=== PATIENT | female | born 1980 | race Caucasian/White ===

== ENCOUNTER 2022-09-29 17:44 | Inpatient (IN) | payer OTHER ==
[2022-09-29] MEDS ORDERED: Ondansetron PF 4 MG/2 ML Vial ONE (18:10)
[2022-09-29 18:30] LABS: Bilirubin 3+ (Negative); Blood, Urine 10 (Negative); Clarity Cloudy (Clear); Glucose, Urine (Dipstick) Normal (Negative); Ketone, Urine 50 mg/dL (Negative); Leukocyte 25 (Negative); Nitrite Positive (Negative); Protein, Urine (Dipstick) 100 mg/dl (Neg-Trace); Specific Gravity, Urine 1.015 (1.005-1.030); Urobilinogen 12 mg/dL (Less than 2)
[2022-09-29 18:45] LABS: RBC/HPF 0-3 HPF (0-3); Squamous Epithelial 21-50 HPF (0-3)
[2022-09-29 18:46] LABS: Bacteria/HPF 4+ HPF (None Seen); Mucous/LPF 3+ LPF (<2+)
[2022-09-29] MEDS ORDERED: Thiamine HCl 200 MG/2 ML VIAL ONE ×2 (18:56→20:33)
[2022-09-29] MEDS ORDERED: Lorazepam 2 MG/ML VIAL ONE ×2 (19:12→20:31)
[2022-09-29] MEDS ORDERED: Multivit, Therapeutic 1 TAB PO SCH (19:15)
[2022-09-29] MEDS ORDERED: Thiamine HCl 100 MG, Folic Acid 1 MG in Dextrose 5 %-0.45 % NaCl 1,000 ML IVPB SCH (19:15)
[2022-09-29 19:21] LABS: #Monocytes 1.1 10x3/uL (0.0-1.1); #Neutrophils 8.2 10x3/uL (1.5-8.4); %Basophils 0.4 % (0.0-2.0); %Lymphocytes 14.4 % (18.0-47.0); %Monocytes 10.2 % (0.0-10.0); %Neutrophils 74.8 % (40.0-75.0); Hemoglobin 14.5 g/dL (12.0-15.5); Mean Corpuscular HGB CONC 36.6 g/dL (32.0-36.0); Mean Corpuscular Hemoglobin 36.4 pg (27.0-33.0); Mean Corpuscular Volume 99.5 fl (81.6-98.3); Mean Platelet Volume 12.5 fl (7.4-10.4); Platelet Count 196 10x3/uL (150-450); RBC Distribution Width 13.3 % (11.5-14.5); Red Blood Cell (RBC) Count 3.98 10x6/uL (3.90-5.03); White Blood Cell (WBC) Count 10.9 10x3/uL (3.5-10.5)
[2022-09-29] MEDS ORDERED: cefTRIAXone\\ROCEPHIN 2 GM VIAL ONE (19:24)
[2022-09-29 19:48] LABS: Amphetamine Not Detected (NotDetected); Barbiturates Screen Detected (NotDetected); Benzodiazepine Screen Detected (NotDetected); Cocaine Metabolite Screen Not Detected (NotDetected); Methadone Not Detected (NotDetected); Methamphetamine Not Detected (NotDetected); Opiate Screen Not Detected (NotDetected); Oxycodone Screen Not Detected (NotDetected); Phencyclidine (PCP) Not Detected (NotDetected); THC/Cannabinoid Screen Not Detected (NotDetected); Tricyclic Screen Not Detected (NotDetected)
[2022-09-29 19:58] LABS: ALT (SGPT) 55 U/L (8-55); AST (SGOT) 109 U/L (5-34); Albumin 4.3 g/dL (3.5-5.0); Alkaline Phosphatase 100 U/L (40-110); Anion Gap 27 mmol/L (10-20); BUN (Urea Nitrogen) 7 mg/dL (7.0-18.7); Bilirubin, Total 3.3 mg/dL (0.2-1.2); Calc. Creatinine Clearance 0 mL/min (70-130); Calcium 8.3 mg/dL (7.8-10.44); Carbon Dioxide 24 mmol/L (22-29); Chloride 84 mmol/L (98-107); Estimated GFR 113; Globulin 3.3 g/dL (2.4-3.5); Glucose 97 mg/dL (70-105); Lipase 39 U/L (8-78); Protein, Total 7.6 g/dL (6.0-8.3); Sodium 132 mmol/L (136-145)
[2022-09-29 20:00] LABS: Magnesium 0.8 mg/dL (1.6-2.6); Potassium 2.5 mmol/L (3.5-5.1)
[2022-09-29 20:09] LABS: Syphilis Antibody Nonreactive (Nonreactive); Syphilis Antibody Index 0.06 S/CO (<1.00 Non-Reactive)
[2022-09-29] MEDS ORDERED: Magnesium 2 GM/50 ML BAG (IN WATER) ONE (20:09)
[2022-09-29] MEDS ORDERED: Potassium Chloride 20 MEQ/100 ML PREMIX BAG ONE ×2 (20:09→20:31)
[2022-09-29] MEDS ORDERED: Potassium Chloride 20 MEQ TAB ONE (20:10)
[2022-09-29 21:28] LABS: SARS-CoV-2 NAA Rapid Test Not Detected (NotDetected)
[2022-09-29 21:49] LABS: Lactic Acid 5.7 mmol/L (0.5-2.2)
[2022-09-29] MEDS ORDERED: Lorazepam 1 MG TAB PO PRN (22:14)
[2022-09-29] MEDS ORDERED: Electrolyte Replacement Protocol FS SCH (22:15)
[2022-09-29] MEDS ORDERED: Ketorolac Tromethamine 30 MG/ML VIAL IVP PRN (22:21)
[2022-09-29] MEDS ORDERED: Pantoprazole 40 MG VIAL IVP SCH (22:30)
[2022-09-29] MEDS ORDERED: Topiramate 100 MG TAB PO SCH (22:30)
[2022-09-29] MEDS: Promethazine HCl 12.5 MG in Sodium Chloride 0.9% 100 ML IVPB ONE ×2 (22:33→23:41)
[2022-09-29] MEDS: Potassium Chloride 20 MEQ in Lactated Ringer's 1,000 ML IV SCH ×3 (22:56→23:30)
[2022-09-29] MEDS: Thiamine HCl 200 MG/2 ML VIAL SLOW IVP SCH (23:12)
[2022-09-30 00:08] LABS: Lactic Acid 3.2 mmol/L (0.5-2.2)
[2022-09-30 00:10] LABS: Phosphorus 1.9 mg/dL (2.3-4.7)
[2022-09-30 00:12] LABS: Anion Gap 19 mmol/L (10-20); BUN (Urea Nitrogen) 7 mg/dL (7.0-18.7); Calc. Creatinine Clearance 130 mL/min (70-130); Calcium 7.6 mg/dL (7.8-10.44); Carbon Dioxide 27 mmol/L (22-29); Chloride 88 mmol/L (98-107); Estimated GFR 113; Glucose 115 mg/dL (70-105); Magnesium 1.3 mg/dL (1.6-2.6); Potassium 2.8 mmol/L (3.5-5.1); Sodium 131 mmol/L (136-145)
[2022-09-30] MEDS: Lorazepam 1 MG TAB PO SCH ×5 (00:24→23:01)
[2022-09-30] MEDS ORDERED: Potassium Chloride 20 MEQ in Premix Bag 1 BAG IVPB SCH ×2 (00:30→05:00)
[2022-09-30] MEDS ORDERED: Magnesium 2 GM/50 ML(in water) 2 GM in Premix Bag 1 BAG IVPB SCH ×2 (00:30→12:00)
[2022-09-30] MEDS: Potassium Chloride 20 MEQ in Premix Bag 1 BAG IVPB SCH ×4 (01:58→08:37)
[2022-09-30 03:53] LABS: #Basophils 0.1 10x3/uL (0.0-0.2); #Monocytes 0.6 10x3/uL (0.0-1.1); #Neutrophils 4.8 10x3/uL (1.5-8.4); %Basophils 0.7 % (0.0-2.0); %Eosinophils 0.4 % (0.0-6.0); %Lymphocytes 23.1 % (18.0-47.0); %Monocytes 8.8 % (0.0-10.0); %Neutrophils 66.7 % (40.0-75.0); Hemoglobin 10.9 g/dL (12.0-15.5); Mean Corpuscular HGB CONC 35.6 g/dL (32.0-36.0); Mean Platelet Volume 12.5 fl (7.4-10.4); Platelet Count 130 10x3/uL (150-450); RBC Distribution Width 13.5 % (11.5-14.5); Red Blood Cell (RBC) Count 3.03 10x6/uL (3.90-5.03); White Blood Cell (WBC) Count 7.2 10x3/uL (3.5-10.5)
[2022-09-30 04:04] LABS: Anion Gap 20 mmol/L (10-20); BUN (Urea Nitrogen) 7 mg/dL (7.0-18.7); Calc. Creatinine Clearance 134 mL/min (70-130); Calcium 7.5 mg/dL (7.8-10.44); Carbon Dioxide 23 mmol/L (22-29); Chloride 92 mmol/L (98-107); Estimated GFR 114; Glucose 138 mg/dL (70-105); Magnesium 2.3 mg/dL (1.6-2.6); Sodium 132 mmol/L (136-145)
[2022-09-30 04:10] LABS: Potassium 2.5 mmol/L (3.5-5.1)
[2022-09-30] MEDS: Potassium Chloride 20 MEQ TAB PO SCH ×2 (04:29→07:04)
[2022-09-30] MEDS: PHOS-NAK 1 PKT PACK PO SCH ×2 (04:30→08:37)
[2022-09-30] MEDS ORDERED: Chloraseptic Spray 180 ml Bottle PO PRN (08:12)
[2022-09-30] MEDS ORDERED: Cepastat Lozenges 1 LOZ PO PRN (08:12)
[2022-09-30] MEDS: Multivit, Therapeutic 1 TAB PO SCH (08:38)
[2022-09-30] MEDS: Folic Acid 1 MG TAB PO SCH (08:38)
[2022-09-30] MEDS: Topiramate 25 MG TAB PO SCH (08:38)
[2022-09-30] MEDS ORDERED: FLU VACC QS2022-23(6MOS UP)/PF 60 MCG/0.5 ML SYRINGE IM ONE (09:00)
[2022-09-30] MEDS: Fioricet 325/50/40 mg Tablet PO PRN (10:29)
[2022-09-30] MEDS: Ondansetron ODT 4 MG TAB PO PRN ×2 (10:29→18:41)
[2022-09-30] MEDS: Potassium Chloride 20 MEQ in Lactated Ringer's 1,000 ML IV SCH ×2 (10:29→15:58)
[2022-09-30 10:58] LABS: Anion Gap 16 mmol/L (10-20); BUN (Urea Nitrogen) 6 mg/dL (7.0-18.7); Calc. Creatinine Clearance 138 mL/min (70-130); Calcium 8.1 mg/dL (7.8-10.44); Carbon Dioxide 24 mmol/L (22-29); Chloride 99 mmol/L (98-107); Estimated GFR 113; Glucose 82 mg/dL (70-105); Potassium 3.9 mmol/L (3.5-5.1); Sodium 135 mmol/L (136-145)
[2022-09-30] MEDS ORDERED: Metoprolol Tartrate 25 MG TAB PO SCH (12:00)
[2022-09-30] MEDS ORDERED: cloNIDine 0.1 MG TAB PO PRN (12:01)
[2022-09-30] MEDS: Ketorolac Tromethamine 30 MG/ML VIAL IVP PRN (16:51)
[2022-09-30] MEDS: Cyanocobalamin (Vitamin B-12) 1,000 MCG TAB PO SCH (20:21)
[2022-09-30] MEDS: Metoprolol Tartrate 25 MG TAB PO SCH (20:21)
[2022-09-30] MEDS: Topiramate 100 MG TAB PO SCH (20:21)
[2022-09-30] MEDS: cefTRIAXone\\ROCEPHIN 1 GM in Sodium Chloride 0.9% 100 ML IVPB SCH (20:21)
[2022-09-30] MEDS: Pantoprazole 40 MG VIAL IVP SCH (20:23)
[2022-09-30] MEDS ORDERED: Pantoprazole 40 MG VIAL IVP SCH (21:00)
[2022-09-30] MEDS ORDERED: Lorazepam 1 MG TAB PO PRN (22:14)
[2022-09-30] MEDS: Thiamine HCl 200 MG/2 ML VIAL SLOW IVP SCH (23:01)
[2022-10-01] MEDS: Potassium Chloride 20 MEQ in Lactated Ringer's 1,000 ML IV SCH ×2 (02:36→18:32)
[2022-10-01 04:13] LABS: Mean Platelet Volume 12.9 fl (7.4-10.4)
[2022-10-01] MEDS: Fioricet 325/50/40 mg Tablet PO PRN ×3 (04:13→17:23)
[2022-10-01 04:14] LABS: #Basophils 0.1 10x3/uL (0.0-0.2); #Eosinphils 0.1 10x3/uL (0.0-0.5); #Monocytes 0.6 10x3/uL (0.0-1.1); #Neutrophils 3.2 10x3/uL (1.5-8.4); %Basophils 1.4 % (0.0-2.0); %Lymphocytes 28.2 % (18.0-47.0); %Monocytes 11.4 % (0.0-10.0); %Neutrophils 56.8 % (40.0-75.0); Hemoglobin 10.9 g/dL (12.0-15.5); Mean Corpuscular HGB CONC 33.5 g/dL (32.0-36.0); Mean Corpuscular Hemoglobin 36.7 pg (27.0-33.0); Mean Corpuscular Volume 109.4 fl (81.6-98.3); Platelet Count 113 10x3/uL (150-450); RBC Distribution Width 13.9 % (11.5-14.5); Red Blood Cell (RBC) Count 2.97 10x6/uL (3.90-5.03); White Blood Cell (WBC) Count 5.6 10x3/uL (3.5-10.5)
[2022-10-01 04:26] LABS: ALT (SGPT) 55 U/L (8-55); AST (SGOT) 122 U/L (5-34); Albumin 3.3 g/dL (3.5-5.0); Alkaline Phosphatase 83 U/L (40-110); Anion Gap 13 mmol/L (10-20); BUN (Urea Nitrogen) 5 mg/dL (7.0-18.7); Bilirubin, Total 1.3 mg/dL (0.2-1.2); Calc. Creatinine Clearance 127 mL/min (70-130); Calcium 8.1 mg/dL (7.8-10.44); Carbon Dioxide 21 mmol/L (22-29); Chloride 107 mmol/L (98-107); Estimated GFR 108; Globulin 2.4 g/dL (2.4-3.5); Glucose 84 mg/dL (70-105); Phosphorus 1.9 mg/dL (2.3-4.7); Potassium 3.4 mmol/L (3.5-5.1); Protein, Total 5.7 g/dL (6.0-8.3); Sodium 138 mmol/L (136-145)
[2022-10-01] MEDS: Lorazepam 1 MG TAB PO SCH ×4 (05:10→23:32)
[2022-10-01 06:04] VITALS: BMI 29.0
[2022-10-01] MEDS ORDERED: Magnesium 2 GM/50 ML(in water) 2 GM in Premix Bag 1 BAG IVPB SCH (08:00)
[2022-10-01] MEDS ORDERED: Potassium Chloride 20 MEQ TAB PO SCH (08:00)
[2022-10-01] MEDS: Pantoprazole 40 MG VIAL IVP SCH ×2 (08:35→21:47)
[2022-10-01] MEDS: Ketorolac Tromethamine 30 MG/ML VIAL IVP PRN ×2 (08:36→23:36)
[2022-10-01] MEDS: Metoprolol Tartrate 25 MG TAB PO SCH ×2 (08:37→21:47)
[2022-10-01] MEDS: Folic Acid 1 MG TAB PO SCH (08:37)
[2022-10-01] MEDS: Ondansetron ODT 4 MG TAB PO PRN (08:37)
[2022-10-01] MEDS: Multivit, Therapeutic 1 TAB PO SCH (08:37)
[2022-10-01] MEDS: PHOS-NAK 1 PKT PACK PO SCH ×2 (08:37→12:22)
[2022-10-01] MEDS: Topiramate 25 MG TAB PO SCH (08:38)
[2022-10-01] MEDS ORDERED: Dicyclomine 10 MG CAP PO PRN (14:37)
[2022-10-01] MEDS ORDERED: Fentanyl 100 MCG/2 ML VIAL SLOW IVP SCH (15:45)
[2022-10-01] MEDS ORDERED: Ondansetron PF 4 MG/2 ML Vial IVP PRN (15:56)
[2022-10-01] MEDS ORDERED: cefTRIAXone\\ROCEPHIN 1 GM VIAL ONE (21:31)
[2022-10-01] MEDS: Cyanocobalamin (Vitamin B-12) 1,000 MCG TAB PO SCH (21:46)
[2022-10-01] MEDS: Topiramate 100 MG TAB PO SCH (21:48)
[2022-10-01] MEDS: cefTRIAXone\\ROCEPHIN 1 GM in Sodium Chloride 0.9% 100 ML IVPB SCH (21:49)
[2022-10-01] MEDS ORDERED: Lorazepam 1 MG TAB PO PRN (22:14)
[2022-10-01] MEDS ORDERED: Promethazine HCl 12.5 MG in Sodium Chloride 0.9% 50 ML IVPB SCH (23:00)
[2022-10-01] MEDS: Thiamine HCl 200 MG/2 ML VIAL SLOW IVP SCH (23:18)
[2022-10-01] MEDS: Cyclobenzaprine 10 MG TAB PO PRN (23:21)
[2022-10-02 04:31] LABS: #Basophils 0.1 10x3/uL (0.0-0.2); #Eosinphils 0.2 10x3/uL (0.0-0.5); #Monocytes 0.8 10x3/uL (0.0-1.1); #Neutrophils 3.4 10x3/uL (1.5-8.4); %Basophils 1.4 % (0.0-2.0); %Eosinophils 3.2 % (0.0-6.0); %Lymphocytes 29.4 % (18.0-47.0); %Monocytes 12.5 % (0.0-10.0); %Neutrophils 53.2 % (40.0-75.0); Hemoglobin 11.8 g/dL (12.0-15.5); Mean Corpuscular HGB CONC 33.4 g/dL (32.0-36.0); Mean Corpuscular Hemoglobin 36.6 pg (27.0-33.0); Mean Corpuscular Volume 109.6 fl (81.6-98.3); Mean Platelet Volume 12.9 fl (7.4-10.4); Platelet Count 127 10x3/uL (150-450); Red Blood Cell (RBC) Count 3.22 10x6/uL (3.90-5.03); White Blood Cell (WBC) Count 6.5 10x3/uL (3.5-10.5)
[2022-10-02 05:01] LABS: ALT (SGPT) 62 U/L (8-55); AST (SGOT) 100 U/L (5-34); Albumin 3.4 g/dL (3.5-5.0); Alkaline Phosphatase 97 U/L (40-110); Anion Gap 16 mmol/L (10-20); BUN (Urea Nitrogen) 6 mg/dL (7.0-18.7); Bilirubin, Total 1.1 mg/dL (0.2-1.2); Calc. Creatinine Clearance 129 mL/min (70-130); Calcium 8.6 mg/dL (7.8-10.44); Carbon Dioxide 16 mmol/L (22-29); Chloride 110 mmol/L (98-107); Estimated GFR 104; Globulin 2.7 g/dL (2.4-3.5); Glucose 73 mg/dL (70-105); Magnesium 1.9 mg/dL (1.6-2.6); Phosphorus 2.3 mg/dL (2.3-4.7); Potassium 4.1 mmol/L (3.5-5.1); Protein, Total 6.1 g/dL (6.0-8.3); Sodium 138 mmol/L (136-145)
[2022-10-02] MEDS: Lorazepam 0.5 MG TAB PO SCH ×3 (07:15→17:34)
[2022-10-02] MEDS: Cyclobenzaprine 10 MG TAB PO PRN ×2 (07:17→14:09)
[2022-10-02] MEDS ORDERED: Magnesium 2 GM/50 ML(in water) 2 GM in Premix Bag 1 BAG IVPB SCH (08:00)
[2022-10-02] MEDS: Folic Acid 1 MG TAB PO SCH (09:21)
[2022-10-02] MEDS: Topiramate 25 MG TAB PO SCH (09:21)
[2022-10-02] MEDS: Metoprolol Tartrate 25 MG TAB PO SCH ×2 (09:22→21:33)
[2022-10-02] MEDS: Multivit, Therapeutic 1 TAB PO SCH (09:22)
[2022-10-02] MEDS: pyridOXINE 50 MG (B6) TAB PO SCH (09:22)
[2022-10-02] MEDS: Potassium Chloride 20 MEQ in Lactated Ringer's 1,000 ML IV SCH ×2 (13:53→21:43)
[2022-10-02] MEDS: Pantoprazole 40 MG VIAL IVP SCH ×2 (13:55→21:34)
[2022-10-02] MEDS: HYDROcodone/Acetaminophen 10/325 mg Tablet PO PRN ×2 (18:07→21:42)
[2022-10-02] MEDS: Thiamine 100 MG TAB PO SCH (21:33)
[2022-10-02] MEDS: Cyanocobalamin (Vitamin B-12) 1,000 MCG TAB PO SCH (21:33)
[2022-10-02] MEDS: cefTRIAXone\\ROCEPHIN 1 GM in Sodium Chloride 0.9% 100 ML IVPB SCH (21:33)
[2022-10-02] MEDS: Gabapentin 300 MG CAP PO SCH (21:33)
[2022-10-02] MEDS: Topiramate 100 MG TAB PO SCH (21:43)
[2022-10-02] MEDS: Ondansetron ODT 4 MG TAB PO PRN (21:53)
[2022-10-03] MEDS: Lorazepam 0.5 MG TAB PO SCH (00:17)
[2022-10-03] MEDS: HYDROcodone/Acetaminophen 10/325 mg Tablet PO PRN ×2 (06:20→20:56)
[2022-10-03] MEDS: Metoprolol Tartrate 25 MG TAB PO SCH ×2 (08:58→20:56)
[2022-10-03] MEDS: Folic Acid 1 MG TAB PO SCH (09:01)
[2022-10-03] MEDS: Gabapentin 300 MG CAP PO SCH ×3 (09:01→20:55)
[2022-10-03] MEDS: pyridOXINE 50 MG (B6) TAB PO SCH (09:04)
[2022-10-03] MEDS: Multivit, Therapeutic 1 TAB PO SCH (09:04)
[2022-10-03] MEDS: Topiramate 25 MG TAB PO SCH (09:04)
[2022-10-03] MEDS: Pantoprazole 40 MG VIAL IVP SCH ×2 (09:05→20:56)
[2022-10-03] MEDS: Ondansetron ODT 4 MG TAB PO PRN (09:17)
[2022-10-03] MEDS: Lorazepam 0.5 MG TAB PO PRN ×3 (13:19→22:35)
[2022-10-03] MEDS: Potassium Chloride 20 MEQ in Lactated Ringer's 1,000 ML IV SCH (20:15)
[2022-10-03] MEDS: Cyanocobalamin (Vitamin B-12) 1,000 MCG TAB PO SCH (20:55)
[2022-10-03] MEDS: Thiamine 100 MG TAB PO SCH (20:55)
[2022-10-03] MEDS: Cyclobenzaprine 10 MG TAB PO SCH (20:55)
[2022-10-03] MEDS: Topiramate 100 MG TAB PO SCH (20:56)
[2022-10-04] MEDS: HYDROcodone/Acetaminophen 10/325 mg Tablet PO PRN ×4 (03:04→20:45)
[2022-10-04 05:14] LABS: Anion Gap 10 mmol/L (10-20); BUN (Urea Nitrogen) 6 mg/dL (7.0-18.7); Calc. Creatinine Clearance 157 mL/min (70-130); Calcium 8.5 mg/dL (7.8-10.44); Carbon Dioxide 17 mmol/L (22-29); Chloride 115 mmol/L (98-107); Estimated GFR 115; Glucose 91 mg/dL (70-105); Sodium 138 mmol/L (136-145)
[2022-10-04] MEDS: Lorazepam 0.5 MG TAB PO PRN ×3 (06:29→20:47)
[2022-10-04] MEDS: Cyclobenzaprine 10 MG TAB PO SCH ×2 (08:24→20:45)
[2022-10-04] MEDS: Gabapentin 300 MG CAP PO SCH ×3 (08:24→21:05)
[2022-10-04] MEDS: Topiramate 25 MG TAB PO SCH (08:24)
[2022-10-04] MEDS: pyridOXINE 50 MG (B6) TAB PO SCH (08:24)
[2022-10-04] MEDS: Folic Acid 1 MG TAB PO SCH (08:25)
[2022-10-04] MEDS: Metoprolol Tartrate 25 MG TAB PO SCH ×2 (08:26→20:47)
[2022-10-04] MEDS: Multivit, Therapeutic 1 TAB PO SCH (08:26)
[2022-10-04] MEDS: Pantoprazole 40 MG VIAL IVP SCH ×2 (08:27→20:45)
[2022-10-04] MEDS ORDERED: Iopamidol 300 61% 100 ML VIAL FS ONE (09:56)
[2022-10-04] MEDS: Lorazepam 1 MG TAB PO PRN (13:28)
[2022-10-04] MEDS: Potassium Chloride 20 MEQ in Lactated Ringer's 1,000 ML IV SCH ×2 (19:00→21:05)
[2022-10-04] MEDS: Topiramate 100 MG TAB PO SCH (20:45)
[2022-10-04] MEDS: Thiamine 100 MG TAB PO SCH (20:47)
[2022-10-04] MEDS: Cyanocobalamin (Vitamin B-12) 1,000 MCG TAB PO SCH (20:47)
[2022-10-04] MEDS ORDERED: Polyethylene Glycol 3350 17 GM Packet PO PRN (21:43)
[2022-10-05] MEDS: HYDROcodone/Acetaminophen 10/325 mg Tablet PO PRN ×3 (02:15→12:00)
[2022-10-05] MEDS: Lorazepam 0.5 MG TAB PO PRN (02:26)
[2022-10-05] MEDS: Multivit, Therapeutic 1 TAB PO SCH (09:00)
[2022-10-05] MEDS: Pantoprazole 40 MG VIAL IVP SCH ×2 (10:11→21:01)
[2022-10-05] MEDS: Gabapentin 300 MG CAP PO SCH ×3 (10:12→20:58)
[2022-10-05] MEDS: Folic Acid 1 MG TAB PO SCH (10:13)
[2022-10-05] MEDS: Topiramate 25 MG TAB PO SCH (10:13)
[2022-10-05] MEDS: Lorazepam 1 MG TAB PO PRN (10:13)
[2022-10-05] MEDS: Metoprolol Tartrate 25 MG TAB PO SCH ×2 (10:14→20:57)
[2022-10-05] MEDS: Cyclobenzaprine 10 MG TAB PO SCH ×2 (10:14→20:57)
[2022-10-05] MEDS: pyridOXINE 50 MG (B6) TAB PO SCH (10:14)
[2022-10-05] MEDS: Potassium Chloride 20 MEQ in Lactated Ringer's 1,000 ML IV SCH (19:59)
[2022-10-05 20:35] LABS: Thyroid Stimulating Hormone 2.8003 uIU/mL (0.35-4.94)
[2022-10-05] MEDS: Cyanocobalamin (Vitamin B-12) 1,000 MCG TAB PO SCH (20:57)
[2022-10-05] MEDS: Thiamine 100 MG TAB PO SCH (20:57)
[2022-10-05 21:34] LABS: Hemoglobin A1c 4.3 % (4.0-6.0)
[2022-10-05] MEDS: Topiramate 100 MG TAB PO SCH (21:50)
[2022-10-06 05:50] LABS: #Eosinphils 0.1 10x3/uL (0.0-0.5); #Monocytes 1.2 10x3/uL (0.0-1.1); #Neutrophils 3.4 10x3/uL (1.5-8.4); %Basophils 0.7 % (0.0-2.0); %Eosinophils 1.4 % (0.0-6.0); %Lymphocytes 17.1 % (18.0-47.0); %Monocytes 21.1 % (0.0-10.0); %Neutrophils 59.3 % (40.0-75.0); Hemoglobin 10.3 g/dL (12.0-15.5); Mean Corpuscular HGB CONC 32.1 g/dL (32.0-36.0); Mean Corpuscular Hemoglobin 36.1 pg (27.0-33.0); Mean Corpuscular Volume 112.6 fl (81.6-98.3); Mean Platelet Volume 12.5 fl (7.4-10.4); Platelet Count 207 10x3/uL (150-450); Red Blood Cell (RBC) Count 2.85 10x6/uL (3.90-5.03); White Blood Cell (WBC) Count 5.7 10x3/uL (3.5-10.5)
[2022-10-06 06:05] LABS: Anion Gap 14 mmol/L (10-20); BUN (Urea Nitrogen) 6 mg/dL (7.0-18.7); Calc. Creatinine Clearance 159 mL/min (70-130); Calcium 8.7 mg/dL (7.8-10.44); Carbon Dioxide 16 mmol/L (22-29); Chloride 114 mmol/L (98-107); Estimated GFR 116; Glucose 86 mg/dL (70-105); Potassium 4.1 mmol/L (3.5-5.1); Sodium 140 mmol/L (136-145)
[2022-10-06 06:19] LABS: Eosinophils 2 % (0-10); Lymphocytes 21 % (21-51); Monocytes 21 % (0-10)
[2022-10-06 06:21] LABS: Neutrophil 56 % (42-75)
[2022-10-06 06:22] LABS: Platelet Morphology Comment Appears Adequate; RBC Morphology Normal
[2022-10-06] MEDS: pyridOXINE 50 MG (B6) TAB PO SCH (09:23)
[2022-10-06] MEDS: Gabapentin 300 MG CAP PO SCH ×2 (09:23→14:21)
[2022-10-06] MEDS: Folic Acid 1 MG TAB PO SCH (09:23)
[2022-10-06] MEDS: Topiramate 25 MG TAB PO SCH (09:23)
[2022-10-06] MEDS: Cyclobenzaprine 10 MG TAB PO SCH (09:23)
[2022-10-06] MEDS: Pantoprazole 40 MG VIAL IVP SCH (09:24)
[2022-10-06] MEDS: Metoprolol Tartrate 25 MG TAB PO SCH (09:24)
[2022-10-06] MEDS: Multivit, Therapeutic 1 TAB PO SCH (09:59)
[2022-10-06 12:42] VITALS: BP 135/86; TEMP 97.5
== END 2022-10-06 16:35 | disposition home or self-care (01) | DRG 897 ==
LOC: CSHERS 17:44 → INTOOBSV 22:15 → CSHICU 22:15 → OBSVTOIN 09-30 11:36 → CSHTELE 10-01 17:32
PROVIDERS: ADMIT Family Medicine; ATTEND Hospitalist
DX: F10.239 Alcohol dependence with withdrawal, unspecified (principal); E87.20 Acidosis, unspecified; E87.1 Hypo-osmolality and hyponatremia; E83.42 Hypomagnesemia; E87.6 Hypokalemia; G40.909 Epilepsy, unspecified, not intractable, without status epilepticus; G43.909 Migraine, unspecified, not intractable, without status migrainosus; I50.9 Heart failure, unspecified; E86.0 Dehydration; K70.10 Alcoholic hepatitis without ascites; I11.0 Hypertensive heart disease with heart failure; D50.9 Iron deficiency anemia, unspecified; D51.9 Vitamin B12 deficiency anemia, unspecified; G62.9 Polyneuropathy, unspecified; Z20.822 Contact with and (suspected) exposure to COVID-19; Z88.8 Allergy status to other drugs, medicaments and biological substances; Z90.49 Acquired absence of other specified parts of digestive tract; Z98.890 Other specified postprocedural states
CPT/HCPCS: 36415; 71045; 72146; 72148; 74177; 80048; 80053; 80306; 81003; 81015; 82248; 82607; 83036; 83605; 83690; 83735; 83880; 84100; 84443; 84484; 85025; 86780; 87040; 87086; 93005; 93306; 94760; 96365; 96366; 96368; 96372; 96375; 96376; C9113; G0378; J0696; J1650; J1885; J2060; J2405; J2550; J3010; J3411; J3475; J3480; J3490; J7042; J7120; Q0162; Q9967; U0002